=== PATIENT | female | born 1985 | race Caucasian/White ===

== ENCOUNTER 2024-08-09 08:37 | Emergency (ER) | payer BC, OTHER ==
[~2024-08-09] VITALS: Ht 170.2 cm; Wt 127.3 kg
[2024-08-09 08:39] VITALS: TEMP 98.5
[2024-08-09 09:13] LABS: BASOPHILS % (AUTO) 0.4 % (0.0-2.0); EOSINOPHILS % (AUTO) 0.3 % (1.0-6.0); HEMATOCRIT 35.8 % (36-46); HEMOGLOBIN 11.9 g/dL (12.0-16.0); LYMPHOCYTES # (AUTO) 1.3 K/uL (1.0-4.8); LYMPHOCYTES % (AUTO) 15.3 % (22.0-44.0); MEAN CORPUSCULAR HEMOGLOBIN 27.9 pg (26.0-34.0); MEAN CORPUSCULAR HGB CONC 33.2 G/dL (31.0-37.0); MEAN CORPUSCULAR VOLUME 84 fL (80-100); MONOCYTES # (AUTO) 0.3 K/uL (0.1-1.0); NEUTROPHILS # (AUTO) 6.6 K/uL (1.8-7.7); PLATELET COUNT (AUTO) 297 K/uL (150-450); RED BLOOD CELL COUNT(AUTO) 4.27 MIL/uL (4.00-5.20); WHITE BLOOD COUNT (AUTO) 8.3 K/uL (4.5-11.0)
[2024-08-09 09:22] LABS: ANION GAP 11 mmol/L (8-16); CALCIUM, TOTAL 8.9 mg/dL (8.8-10.5); CARBON DIOXIDE 23 mmol/L (22-29); CHLORIDE 105 mmol/L (98-107); CREATININE 0.68 mg/dL (0.60-1.30); GLOMERULAR FILTR. RATE CALC > 60 mL/min (>60); GLUCOSE,RANDOM 107 mg/dL (70-110); POTASSIUM 3.7 mmol/L (3.5-5.1); SODIUM SERUM 139 mmol/L (136-145); UREA NITROGEN, BLOOD 12 mg/dL (7-18)
[2024-08-09] MEDS ORDERED: SODIUM CHLORIDE 0.9% 100 ML ONE (09:27)
[2024-08-09] MEDS ORDERED: IOHEXOL 350 MG/ML 100 ML VIAL ONE (09:27)
[2024-08-09 09:28] LABS: ALANINE AMINOTRANSFERASE 14 U/L (12-78); ALBUMIN 3.4 g/dL (3.4-5.0); ALKALINE PHOSPHATASE 69 U/L (46-116); ASPARTATE AMINOTRANSFERASE 13 U/L (15-37); BILIRUBIN,TOTAL 0.6 mg/dL (0.1-1.0); LIPASE 30 U/L (16-77); TOTAL PROTEIN, SERUM 6.8 g/dL (6.4-8.2)
[2024-08-09] MEDS: SODIUM CHLORIDE 0.9% 1,000 ML IV ONE (09:28)
[2024-08-09] MEDS: KETOROLAC TROMETHAMINE 30 MG/ML VIAL IVP ONE (09:29)
[2024-08-09] MEDS: ONDANSETRON HCL 4 MG/2 ML VIAL IVP ONE (09:29)
[2024-08-09] MEDS: MAG HYDROX/ALUMINUM HYD/SIMETH 30 ML SUSPENSION UDCUP PO ONE (09:29)
[2024-08-09] MEDS: FAMOTIDINE 20 MG/2 ML VIAL IVP ONE (09:29)
[2024-08-09] MEDS ORDERED: ONDA-104 PO (11:19)
[2024-08-09 12:00] VITALS: BP 127/73; PULSE 85; RESP 14; O2SAT 98
== END 2024-08-09 12:19 | disposition home or self-care (01) ==
LOC: EMS 08:38
DX: K52.9 Noninfective gastroenteritis and colitis, unspecified (principal); G43.909 Migraine, unspecified, not intractable, without status migrainosus; Z88.8 Allergy status to other drugs, medicaments and biological substances; Z88.0 Allergy status to penicillin
CPT/HCPCS: 99285; 74177; 96374; 96375; 96361; 80048; 80076; 83690; 84703; 85025; 36415; Q9967; J3490; J1885; J2405; J7030; J7050